=== PATIENT | male | born 1945 | race Caucasian/White ===

== ENCOUNTER 2017-11-15 08:43 | Emergency (ER) | payer MEDICARE, OTHER ==
[~2017-11-15] VITALS: Ht 170.2 cm; Wt 98.1 kg
[2017-11-15 08:51] VITALS: BP 160/73; PULSE 110; RESP 16; TEMP 98.7; O2SAT 95
[2017-11-15] MEDS ORDERED: CO Q10CA PO (09:10)
[2017-11-15] MEDS ORDERED: FLUT1INH INH (09:10)
[2017-11-15] MEDS ORDERED: CIAL5TAB PO (09:10)
[2017-11-15] MEDS ORDERED: ALBUAER3 INH (09:10)
[2017-11-15] MEDS ORDERED: LACTCAP8 PO (09:10)
[2017-11-15] MEDS ORDERED: TAMS5CAP PO (09:10)
[2017-11-15] MEDS ORDERED: SODIUM CHLOR 0.9% 1000 ML INJ 1,000 ML IV ONE (09:30)
[2017-11-15] MEDS ORDERED: ACETAMINOPHEN 500 MG CPLT PO ONE (09:30)
--- NOTE | 2017-11-15 09:34 | PD ---
HPI Chief Complaint: Cold / Flu Symptoms Time Seen by Provider: 08:55 Travel History International Travel<30 days: No Contact w/Intl Traveler<30days: No Traveled to known affect area: No History of Present Illness HPI This 72-year-old male says he been sick since Sunday. He is having fevers and cough. He is achy. He feels very weak. He has headache today. He says that last night he was felt like he was delirious at times. He has a history of hypertension but has not been on medication since August 2016. He had knee replacements in 2016. He lives in [place]. There is been noted dysuria. He has a nonproductive cough. He stopped smoking in 1979. PFSH Past Medical History Cancer: Yes (HX prostate) Diminished Hearing: No Hypertension: Yes Tetanus Vaccination: < 5 Years Influenza Vaccination: Yes Past Surgical History Abdominal Surgery: Yes (umbilical hernia mesh) Joint Replacement: Yes (bilat knees) Other Surgery: Yes (vastectomy ) Social History Alcohol Use: Yes (daily) Tobacco Use: No Substance Use: No Allergies-Medications (Allergen,Severity, Reaction): Coded Allergies: amoxicillin (Verified Allergy, Unknown, 11/15/17) gabapentin (Verified Allergy, Unknown, 11/15/17) oxycodone (Verified Allergy, Unknown, 11/15/17) Reported Meds & Prescriptions Reported Meds & Active Scripts Active Reported Proair Hfa 8.5 GM Inh (Albuterol Sulfate) 90 Mcg/Act Aer 1 Puff INH Q4H PRN 108 mcg/actuation Breo Ellipta Inh (Fluticasone/Vilanterol) 100-25 Mcg/Act Inh 1 Puff INH DAILY Use daily at the same time. Co Q 10 (Coenzyme Q10 (Ubidecarenone)) 10 Mg Cap 1 Tab PO DAILY Probiotic (Lactobacillus Acidophilus) 10 Billion Cell Cap 1 Cap PO DAILY Flomax (Tamsulosin HCl) 0.4 Mg Cap 0.4 Mg PO BID Cialis (Tadalafil) 5 Mg Tab 5 Mg PO DAILY Do not exceed 1 dose/day. Review of Systems General / Constitutional: No: Fever, Chills Eyes: No: Diploplia, Blurred Vision HENT: Positive: Headaches, No: Vertigo Cardiovascular: No: Chest Pain or Discomfort Respiratory: Positive: Cough Gastrointestinal: No: Vomiting, Diarrhea Genitourinary: No: Urgency Musculoskeletal: Positive: Myalgias Skin: No Rash Neurologic: Positive: Weakness Psychiatric: No: Anxiety Endocrine: No: Heat Intolerance Hematologic/Lymphatic: No: Easy Bruising Physical Exam Narrative GENERAL: Well-developed male. Temp is 101.4 SKIN: Focused skin assessment warm/dry. HEAD: Atraumatic. Normocephalic. EYES: Pupils equal and round. No scleral icterus. No injection or drainage. ENT: No nasal bleeding or discharge. Mucous membranes pink and moist. NECK: Trachea midline. No JVD. CARDIOVASCULAR: Regular rate and rhythm. No murmur appreciated. RESPIRATORY: No accessory muscle use. Clear to auscultation. Breath sounds equal bilaterally. GASTROINTESTINAL: Abdomen soft, non-tender, nondistended. Hepatic and splenic margins not palpable. MUSCULOSKELETAL: No obvious deformities. No clubbing. No cyanosis. No edema. NEUROLOGICAL: Awake and alert. No obvious cranial nerve deficits. Motor grossly within normal limits. Normal speech. PSYCHIATRIC: Appropriate mood and affect; insight and judgment normal. Data Data Last Documented VS Vital Signs Date Time Temp Pulse Resp B/P (MAP) Pulse Ox O2 Delivery O2 Flow Rate FiO2 11/15/17 10:48 91 17 128/61 (83) 95 Room Air 11/15/17 08:51 98.7 Orders Orders Complete Blood Count With Diff (11/15/17 09:28) Comprehensive Metabolic Panel (11/15/17 09:28) Blood Culture (11/15/17 09:28) Urinalysis - C+S If Indicated (11/15/17 09:28) Magnesium (Mg) (11/15/17 09:28) Influenzae A/B Antigen (11/15/17 09:28) Chest, Pa & Lat (11/15/17 09:28) Sodium Chlor 0.9% 1000 Ml Inj (Ns 1000 M (11/15/17 09:30) Acetaminophen (Tylenol) (11/15/17 09:30) Lactic Acid Sepsis Protocol (11/15/17 09:44) Ceftriaxone Inj (Rocephin Inj) (11/15/17 11:15) Labs Laboratory Tests Test 11/15/17 09:45 11/15/17 09:55 Urine Collection Type CLEAN CATCH Urine Color YELLOW Urine Turbidity CLEAR Urine pH 6.0 Urine Specific [place] LESS/EQUAL 1.005 Urine Protein NEG mg/dL Urine Glucose (UA) NEG mg/dL Urine Ketones NEG mg/dL Urine Occult Blood TRACE Urine Nitrite NEG Urine Bilirubin NEG Urine Urobilinogen 0.2 MG/DL Urine Leukocyte Esterase NEG Urine RBC 0-3 /hpf Microscopic Urinalysis Comment CULT NOT INDICATED Lactic Acid Level 1.5 mmol/L White Blood Count 12.9 TH/MM3 Red Blood Count 4.58 MIL/MM3 Hemoglobin 13.8 GM/DL Hematocrit 40.5 % Mean Corpuscular Volume 88.3 FL Mean Corpuscular Hemoglobin 30.1 PG Mean Corpuscular Hemoglobin Concent 34.1 % Red Cell Distribution Width 12.8 % Platelet Count 293 TH/MM3 Mean Platelet Volume 8.0 FL Neutrophils (%) (Auto) 84.6 % Lymphocytes (%) (Auto) 5.7 % Monocytes (%) (Auto) 9.1 % Eosinophils (%) (Auto) 0.1 % Basophils (%) (Auto) 0.5 % Neutrophils # (Auto) 10.9 TH/MM3 Lymphocytes # (Auto) 0.7 TH/MM3 Monocytes # (Auto) 1.2 TH/MM3 Eosinophils # (Auto) 0.0 TH/MM3 Basophils # (Auto) 0.1 TH/MM3 CBC Comment DIFF FINAL Differential Comment Blood Urea Nitrogen 11 MG/DL Creatinine 0.88 MG/DL Random Glucose 140 MG/DL Total Protein 7.8 GM/DL Albumin 3.1 GM/DL Calcium Level 8.7 MG/DL Magnesium Level 2.4 MG/DL Alkaline Phosphatase 84 U/L Aspartate Amino Transf (AST/SGOT) 45 U/L Alanine Aminotransferase (ALT/SGPT) 70 U/L Total Bilirubin 0.5 MG/DL Sodium Level 136 MEQ/L Potassium Level 3.7 MEQ/L Chloride Level 101 MEQ/L Carbon Dioxide Level 27.2 MEQ/L Anion Gap 8 MEQ/L Estimat Glomerular Filtration Rate 85 ML/MIN [facility] Medical Decision Making Medical Screen Exam Complete: Yes Emergency Medical Condition: Yes Medical Record Reviewed: Yes Differential Diagnosis Differential includes influenza, pneumonia, bronchitis Narrative Course Chest x-ray is negative. His lactic acid level is 1.5. White count is slightly elevated at 12,000 urine is negative. Patient's main symptom is cough. I suspect he may have influenza though his test for influenza is negative. He will be covered with antibiotics. I will initial dose of Rocephin. He is to take Keflex at home he should be aggressive with Tylenol and the Motrin for fever Diagnosis Primary Impression: Upper respiratory infection Additional Instructions: Take Tylenol or Motrin for fever Scripts Cephalexin (Keflex) 500 Mg Cap 500 MG PO Q6H for Infection for 10 Days, #40 CAP 0 Refills Prov: Bruce Schuler MD 11/15/17 Disposition: 01 DISCHARGE HOME Condition: Stable Bruce Schuler MD Nov 15, 2017 09:34
--- NOTE | 2017-11-15 10:04 | RADRPT ---
EXAM DATE/TIME: 11/15/2017 09:45 [facility] COMPARISON: No previous studies available for comparison. INDICATIONS : Cough, fever, body aches, head aches x 5 days. MEDICAL HISTORY : Hypertension. Carcinoma, prostatic. Former somker. SURGICAL HISTORY : Umbilical hernia repair. Total knee replacement, left. Total knee replacement, right. Bilateral shoul james surgery. ENCOUNTER: Initial ACUITY: 4 - 6 days PAIN SCORE: 0/10 LOCATION: chest FINDINGS: PA and wheelchair lateral views of the chest demonstrate the lungs to be symmetrically aerated withou t evidence for significant focal pleural or parenchymal opacities.. The cardiomediastinal contours a re unremarkable. Osseous structures are intact. CONCLUSION: 1. No acute cardiopulmonary disease. Tripp Sanchez MD on November 15, 2017 at 10:02 Board Certified Radiologist. This report was verified electronically.
[2017-11-15 10:12] LABS: AUTOMATED NEUTROPHIL # 10.9 TH/MM3 (1.8-7.7); BASOPHIL # 0.1 TH/MM3 (0-0.2); BASOPHIL % 0.5 % (0.0-2.0); EOSINOPHIL % 0.1 % (0.0-4.0); HEMATOCRIT 40.5 % (39.0-51.0); HEMOGLOBIN 13.8 GM/DL (13.0-17.0); LYMPH % 5.7 % (9.0-44.0); LYMPHOCYTE # 0.7 TH/MM3 (1.0-4.8); MEAN CELL VOLUME 88.3 FL (80.0-100.0); MEAN CORPUSCULAR HEMOGLOBIN 30.1 PG (27.0-34.0); MEAN CORPUSCULAR HGB CONC 34.1 % (32.0-36.0); MONO % 9.1 % (0.0-8.0); MONOCYTE # 1.2 TH/MM3 (0-0.9); NEUT % 84.6 % (16.0-70.0); PLATELET COUNT 293 TH/MM3 (150-450); RED BLOOD COUNT 4.58 MIL/MM3 (4.50-5.90); RED CELL DISTRIBUTION WIDTH 12.8 % (11.6-17.2); WHITE BLOOD COUNT 12.9 TH/MM3 (4.0-11.0)
[2017-11-15 10:13] LABS: BILIRUBIN, URINE NEG (NEG); BLOOD, URINE TRACE (NEG); GLUCOSE,URINE NEG (NEG); KETONE, URINE NEG (NEG); NITRITE,URINE NEG (NEG); URINE COLOR YELLOW (YELLW/STRAW); URINE LEUKOCYTE ESTERASE NEG (NEG)
[2017-11-15 10:27] LABS: CHLORIDE 101 MEQ/L (98-107); SODIUM (NA) 136 MEQ/L (136-145)
[2017-11-15 10:28] LABS: RBC, URINE 0-3 /hpf (0-3)
[2017-11-15 10:30] LABS: CALCIUM 8.7 MG/DL (8.5-10.1)
[2017-11-15 10:31] LABS: ALBUMIN 3.1 GM/DL (3.4-5.0); BICARBONATE 27.2 MEQ/L (21.0-32.0); BLOOD UREA NITROGEN 11 MG/DL (7-18); GLUCOSE,RANDOM 140 MG/DL (74-106); MAGNESIUM 2.4 MG/DL (1.5-2.5)
[2017-11-15 10:34] LABS: ALT (GPT) 70 U/L (12-78); AST (GOT) 45 U/L (15-37); CREATININE 0.88 MG/DL (0.60-1.30); GLOMERULAR FILTRATION RATE 85 ML/MIN (>89)
[2017-11-15 10:35] LABS: TOTAL BILIRUBIN ADULT 0.5 MG/DL (0.2-1.0); TOTAL PROTEIN 7.8 GM/DL (6.4-8.2)
[2017-11-15 10:37] LABS: ALKALINE PHOSPHATASE 84 U/L (45-117)
[2017-11-15 10:48] VITALS: BP 128/61; PULSE 91; RESP 17; O2SAT 95
[2017-11-15] MEDS ORDERED: cefTRIAXone INJ 2,000 MG in SODIUM CHLORIDE 0.9% INJ 100 ML IV ONE (11:15)
[2017-11-15] MEDS ORDERED: CEPH-460 PO (11:48)
[2017-11-15 11:58] VITALS: BP 144/64
== END 2017-11-15 12:19 | disposition home or self-care (01) ==
LOC: PHED 08:43
DX: J06.9 Acute upper respiratory infection, unspecified (principal); I10 Essential (primary) hypertension; Z85.46 Personal history of malignant neoplasm of prostate; Z88.8 Allergy status to other drugs, medicaments and biological substances; Z79.899 Other long term (current) drug therapy; Z96.653 Presence of artificial knee joint, bilateral
CPT/HCPCS: 71046; 80053; 81001; 83605; 83735; 85025; 87040; 87804; 96361; 96365; 99284; J0696; J7030

== ENCOUNTER 2017-11-19 10:20 | Emergency (ER) | payer MEDICARE, OTHER ==
[~2017-11-19] VITALS: Ht 170.2 cm; Wt 96.0 kg
[~2017-11-19 10:20] MED LIST: ALBUAER3 INH; CEPH-460 PO; CIAL5TAB PO; CO Q10CA PO; FLUT1INH INH; LACTCAP8 PO; TAMS5CAP PO
[2017-11-19 10:29] VITALS: BP 133/62; PULSE 88; RESP 22; TEMP 98.4; O2SAT 94
[2017-11-19] MEDS ORDERED: TYLETAB34 PO (11:27)
[2017-11-19] MEDS ORDERED: BENZ100 PO (11:27)
[2017-11-19] MEDS ORDERED: ACYC400T PO (11:27)
--- NOTE | 2017-11-19 11:49 | PD ---
HPI Chief Complaint: Respiratory Symptoms Time Seen by Provider: 11:07 Travel History International Travel<30 days: No Contact w/Intl Traveler<30days: No Traveled to known affect area: No History of Present Illness HPI This patient complains of pain in bilateral rib cage from coughing. He was seen here few days ago for respiratory infection and had extensive workup. His chest x-ray was negative. He says from an infection standpoint he feels better but he wants something for his cough and something for his rib pain. He also complains of a painful blister that has cropped up on his lower lip. He gets this a couple of times a year and it's painful. Some severity is moderate. Worse with moving his rib cage PFSH Past Medical History Cancer: Yes (HX prostate) Diabetes: No Diminished Hearing: No Hypertension: Yes Tetanus Vaccination: Unknown Past Surgical History Abdominal Surgery: Yes (umbilical hernia mesh) Joint Replacement: Yes (bilat knees) Other Surgery: Yes (vastectomy ) Social History Alcohol Use: Yes (daily) Tobacco Use: No Substance Use: No Allergies-Medications (Allergen,Severity, Reaction): Coded Allergies: amoxicillin (Verified Allergy, Unknown, 11/19/17) gabapentin (Verified Allergy, Unknown, 11/19/17) oxycodone (Verified Allergy, Unknown, 11/19/17) Reported Meds & Prescriptions Reported Meds & Active Scripts Active Acyclovir 400 Mg Tab 400 Mg PO TID Tylenol-Codeine #3 (Acetaminophen-Codeine) 300-30 mg Tab 1 Tab PO Q6H PRN Tessalon Perles (Benzonatate) 100 Mg Cap 200 Mg PO TID PRN Keflex (Cephalexin) 500 Mg Cap 500 Mg PO Q6H 10 Days Reported Proair Hfa 8.5 GM Inh (Albuterol Sulfate) 90 Mcg/Act Aer 1 Puff INH Q4H PRN 108 mcg/actuation Breo Ellipta Inh (Fluticasone/Vilanterol) 100-25 Mcg/Act Inh 1 Puff INH DAILY Use daily at the same time. Co Q 10 (Coenzyme Q10 (Ubidecarenone)) 10 Mg Cap 1 Tab PO DAILY Probiotic (Lactobacillus Acidophilus) 10 Billion Cell Cap 1 Cap PO DAILY Flomax (Tamsulosin HCl) 0.4 Mg Cap 0.4 Mg PO BID Cialis (Tadalafil) 5 Mg Tab 5 Mg PO DAILY Do not exceed 1 dose/day. Review of Systems General / Constitutional: No: Fever HENT: No: Headaches Cardiovascular: Positive: Chest Pain or Discomfort Respiratory: Positive: Cough Gastrointestinal: No: Vomiting Genitourinary: No: Dysuria Physical Exam Narrative GENERAL: Well-nourished, well-developed patient. SKIN: Focused skin assessment warm/dry. Examination shows a large vesicular lesion on the lower lip HEAD: Normocephalic. EYES: No scleral icterus. No injection or drainage. NECK: Supple, trachea midline. No JVD or lymphadenopathy. CARDIOVASCULAR: Regular rate and rhythm without murmurs, gallops, or rubs. RESPIRATORY: Breath sounds equal bilaterally. No accessory muscle use. GASTROINTESTINAL: Abdomen soft, non-tender, nondistended. MUSCULOSKELETAL: No cyanosis, or edema. Bilateral rib tenderness without bruising or crepitus BACK: Nontender without obvious deformity. No CVA tenderness. Data Data Last Documented VS Vital Signs Date Time Temp Pulse Resp B/P (MAP) Pulse Ox O2 Delivery O2 Flow Rate FiO2 11/19/17 11:04 22 94 Room Air 11/19/17 10:29 98.4 88 133/62 (85) MDM Medical Decision Making Medical Screen Exam Complete: Yes Emergency Medical Condition: Yes Medical Record Reviewed: Yes Differential Diagnosis Rib strain, musculoskeletal chest pain, muscle tear Narrative Course I have reviewed the patient's electronic medical record. Reviewed his extensive workup from 3 days ago I wrote him some acyclovir for his blister of lip which is recurrent I wrote him some Tylenol 3 for his rib pain from coughing I wrote him some Tessalon as he is rather insistent on cough medicine Hopefully these will help decrease his symptoms Recommend primary care follow-up Diagnosis Primary Impression: Rib pain Additional Impressions: Herpetic lesion Cough Referrals: Primary Care Physician call for appointment Patient Instructions: General Instructions Departure Forms: Tests/Procedures Additional Instructions: The patient was advised to follow up with their physician and return if they worsen. The patient was warned about potential sedation for the medications they will receive on prescription. Med/Other Pt SpecificInfo: Prescription(s) given Scripts Acyclovir (Acyclovir) 400 Mg Tab 400 MG PO TID for Mgmt Viral Infection, #20 TAB 0 Refills Prov: Harpal Silva MD 11/19/17 Acetaminophen-Codeine (Tylenol-Codeine #3) 300-30 mg Tab 1 TAB PO Q6H Y for PAIN, #20 TAB 0 Refills Prov: Harpal Silva MD 11/19/17 Benzonatate (Tessalon Perles) 100 Mg Cap 200 MG PO TID Y for COUGH, #20 CAP 0 Refills Prov: Harpal Silva MD 11/19/17 Disposition: 01 DISCHARGE HOME Condition: Stable Harpal Silva MD Nov 19, 2017 11:49
== END 2017-11-19 12:05 | disposition home or self-care (01) ==
LOC: PHED 10:20
DX: R07.81 Pleurodynia (principal); B00.1 Herpesviral vesicular dermatitis; R05 Cough
CPT/HCPCS: 99283